=== PATIENT | female | born 1940 | race African-American/Black ===

== ENCOUNTER → 2018-02-17 | Outpatient (CLI) | payer OTHER ==
[~2018-02-17] MED LIST: ASPI81TA50 PO; CHOL500L2 PO; DICL100G18 TP; FERR-36 PO; GABA-586 PO; LEVO150T5 PO; METO25TA4 PO; MONT10TA9 PO; MULT1TAB52 PO; OMEP20CA9 PO; SIMV20TA3 PO
--- NOTE | 2018-02-22 12:27 | RESP ---
DATE OF SERVICE: 02/17/2018 ATTENDING PHYSICIAN: Dr. Brooke. The patient's FVC was 2.41, which is 121% predicted; FEV1 2.0, which is 131% predicted. FEV1/FVC ratio was normal. FEF 25-75 was 73% predicted. No bronchodilators were given. Lung volume showed a normal total lung capacity, residual volume was increased at 140% predicted. Diffusion capacity 149% predicted. IMPRESSION: 1. No clinically significant obstructive airway disease. 2. Lung volumes consistent with air trapping. 3. No bronchodilators were given. 4. Increased diffusion capacity. LAILA BRAGA MD DR: ANUEL/anne marie JOB#: [id number] / [id number]
== END | disposition home or self-care (01) ==
LOC: PF 10:19
PROVIDERS: ATTEND Internal Medicine Cardiovascular Disease
DX: R06.00 Dyspnea, unspecified (principal); Z96.641 Presence of right artificial hip joint
CPT/HCPCS: 94010; 94729

== ENCOUNTER 2018-03-04 07:51 | Outpatient (CLI) | payer OTHER ==
[2018-03-04] VITALS (12 sets, daily range): BP systolic 113–153; BP diastolic 57–105
[~2018-03-04] VITALS: Ht 160 cm; Wt 87.5 kg
[2018-03-04 08:27] LABS: HEMATOCRIT 38.4 % (36.0-47.0); HEMOGLOBIN 13.1 g/dL (12.0-15.5); RED BLOOD COUNT 4.49 x10^6/uL (3.50-5.40); RED CELL DISTRIBUTION WIDTH 15.5 % (11.5-14.5); WHITE BLOOD COUNT 7.4 x10^3/uL (4.0-11.0)
[2018-03-04 08:39] LABS: PROTHROMBIN TIME PATIENT 12.7 SEC (11.7-14.0)
[2018-03-04] MEDS ORDERED: MONT10TA9 PO (08:58)
[2018-03-04] MEDS ORDERED: GABA-586 PO (08:58)
[2018-03-04] MEDS ORDERED: METO25TA4 PO (08:58)
[2018-03-04] MEDS ORDERED: ASPI81TA50 PO (08:58)
[2018-03-04] MEDS ORDERED: OMEP20CA9 PO (08:58)
[2018-03-04] MEDS ORDERED: CHOL500L2 PO (08:58)
[2018-03-04] MEDS ORDERED: DICL100G18 TP (08:58)
[2018-03-04] MEDS ORDERED: LEVO150T5 PO (08:58)
[2018-03-04] MEDS ORDERED: MULT1TAB52 PO (08:58)
[2018-03-04] MEDS ORDERED: SIMV20TA3 PO (08:58)
[2018-03-04] MEDS ORDERED: FERR-36 PO (08:58)
[2018-03-04] MEDS ORDERED: IODIXANOL 320 MG/ML 100 ML VIAL. ONE ×2 (10:12→11:16)
[2018-03-04] MEDS ORDERED: LIDOCAINE 1% PF 2 ML VIAL. ONE (10:12)
[2018-03-04] MEDS ORDERED: fentaNYL PF VIAL 100 MCG/2 ML VIAL ONE (10:35)
[2018-03-04] MEDS ORDERED: HEPARIN for IV BOLUS 10,000 UNIT/10 ML VIAL. ONE ×2 (10:35→10:55)
[2018-03-04] MEDS ORDERED: NITROGLYCERIN 200 MCG/2 ML SYRINGE FOR CATH/VASC LAB. ONE (10:35)
[2018-03-04] MEDS ORDERED: MIDAZOLAM HCL/PF 2 MG/2 ML VIAL. ONE (10:35)
[2018-03-04] MEDS ORDERED: VERAPAMIL 5 MG/2 ML VIAL. ONE (10:35)
[2018-03-04] MEDS ORDERED: LIDOCAINE 1% PF 30 ML VIAL. ONE (10:37)
[2018-03-04 10:58] LABS: CALCIUM 9.5 mg/dL (8.5-10.1); CREATININE 1.3 mg/dL (0.6-1.0); GFR 47.9; POTASSIUM 4.5 mmol/L (3.5-5.1)
[2018-03-04] MEDS ORDERED: HEPARIN for IV BOLUS 10,000 UNIT/10 ML VIAL. IV ONE (12:00)
[2018-03-04] MEDS ORDERED: MIDAZOLAM HCL/PF 2 MG/2 ML VIAL. IV ONE (12:00)
[2018-03-04] MEDS ORDERED: fentaNYL PF VIAL 100 MCG/2 ML VIAL IV ONE (12:00)
[2018-03-04] MEDS ORDERED: LIDOCAINE 1% PF 30 ML VIAL. INJ ONE (12:00)
[2018-03-04] MEDS ORDERED: CONTRAST GIVEN. MC PRN (12:00)
[2018-03-04] MEDS ORDERED: IODIXANOL 320 MG/ML 100 ML VIAL. IART ONE (12:00)
[2018-03-04] MEDS ORDERED: NITROGLYCERIN SUBLINGUAL 0.4 MG BOTTLE OF 25. SL PRN (14:30)
[2018-03-04] MEDS ORDERED: oxyCODONE/APAP 5/325 1 TAB TABLET PO PRN (14:30)
[2018-03-04] MEDS ORDERED: 0.9 % SODIUM CHLORIDE 10 ML DISP.SYRIN. IV PRN (14:30)
--- NOTE | 2018-03-04 16:02 | CARD ---
MR#: [id number] Date of Study: 03/04/2018 Ordering Physician: SANNA BROOKE, Referring Physician: SANNA BROOKE, Tech: RT Abdiel (R) APPROVED REPORT Technologist: RT Abdiel (R) Nurse: Cara Kumar R.N. Procedure(s) performed: 75 mins sedation [facility], Coronary angiography, iFR of the LAD iFR of the LCx. HISTORY : The patient is a 77 year-old female with a history of . INDICATION The indication(s) include : stable angina , dyspnea. PROCEDURE NARRATIVE After explaining the risks and benefits of the procedure and alternatives, informed consent was obtai chirag. The patient was brought electively to the cardiac catheterization lab in a fasting state. A compa eout was performed confirming the patient's name, date of , procedure, and site of procedure. A ll necessary personnel were wearing the appropriate protective equipment and radiation monitor device s. (See nursing notes for medications administered). The right groin was sterilely prepped and drap ed in the usual fashion. The right groin was infiltrated with 10 mL of 2% lidocaine for subcutaneous anesthesia. A 6 F sheath was inserted into the right femoral artery without difficulty. Right and left coronary angiography was performed using a JR4 and JL4 catheter. Due to anamolous take-off of th e RCA from the [facility], despite use of a JR4, AL1/2/3, Ikari 1.5 and other catheters, the RCA was ultimat charlee able to be engated with a JL4 catheter. HEMODYNAMICS: AO: 140/86 LEFT VENTRICULOGRAM: Deferred due to known EF. *No significant mitral regurgitation or aortic insufficiency. CORONARY ANGIOGRAPHY: LM is a moderate caliber vessel with a diffuse 50% stenosis. LAD is a large caliber vessel with mild luminal irregularities. LCx is a moderate caliber non-dominant with an ostial 50% stenosis, followed by a mid 50% stenosis. OM1 is a moderate caliber vessel with normal angiographic appearance. RCA is a large caliber dominant vessel with mild diffuse disease of up to 30%. The RCA has an ANOMALO US take-off from the [facility]. RPDA is a moderate caliber vessels with normal angiographic appearance. INTERVENTIONAL TECHNIQUE: Heparin was used for an to regulation. Through a JL4 guide catheter the 0.014 inch pressure wire was advanced into the LAD and subsequent only to the left circumflex and IFR values were measured to be 0 .98. Given that the iFR values were within normal limits further intervention was deferred.All cathet er exchanges and advancements were performed over a guidewire. At case completion the right femoral sheath was removed and hemostasis was achieved with manual compression. There were no acute complicat ions. 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 Conclusion 1. 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 2. Negative physiologic study (iFR) of the LAD and LCx. 3. 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
== END 2018-03-04 17:50 | disposition home or self-care (01) ==
LOC: CCL 07:51
PROVIDERS: ATTEND Internal Medicine Cardiovascular Disease
DX: I25.118 Atherosclerotic heart disease of native coronary artery with other forms of angina pectoris (principal); I10 Essential (primary) hypertension; E78.5 Hyperlipidemia, unspecified; E03.9 Hypothyroidism, unspecified; D64.9 Anemia, unspecified; Z85.850 Personal history of malignant neoplasm of thyroid; Z86.73 Personal history of transient ischemic attack (TIA), and cerebral infarction without residual deficits; M19.90 Unspecified osteoarthritis, unspecified site; Z79.82 Long term (current) use of aspirin; Z79.899 Other long term (current) drug therapy
CPT/HCPCS: 36415; 80048; 85027; 85347; 85610; 93458; 93571; 93572; 99152; 99153; C1769; C1887; J1644; J2250; J3010; Q9967